=== PATIENT | male | born 1995 | race Caucasian/White ===

== ENCOUNTER 2023-05-05 10:55 | Emergency (ER) | payer OTHER, SELFPAY ==
--- NOTE | 2023-05-05 11:05 | ED.URI ---
HPI - URI/Sore Throat General Chief Complaint: Upper Respiratory Infection Stated Complaint: SORE THROAT Time Seen by Provider: 05/05/23 11:06 Source: patient Mode of arrival: ambulatory Limitations: no limitations History of Present Illness HPI Narrative: Patient is a 27-year-old male who presents with sore throat for 3 days. Patient does report mild congestion in the mornings but it resolves as the day goes on. Patient denies any history of seasonal allergies. Patient has not taken any medications for symptoms. Denies any fever, chills, cough, ear pain, nausea, vomiting, diarrhea. Related Data Allergies Allergy/AdvReac Type Severity Reaction Status Date / Time cephalexin [From Keflex] Allergy Hives Verified 05/05/23 11:03 Penicillins Allergy Hives Verified 05/05/23 11:03 Review of Systems Review of Systems: All systems reviewed & are unremarkable except as noted in HPI and below Constitutional: Constitutional: Denies body ache(s), Denies chills, Denies fatigue, Denies fever(s), Denies headache(s), Denies malaise and Denies weakness Eyes: Eyes: Denies blurry vision, Denies itchy eyes and Denies loss of vision ENT: Denies otalgia, Denies headache(s), Reports nasal congestion, Denies sinus pain and Reports sore throat Cardiovascular: Cardiovascular: Denies chest pain, Denies irregular heart rhythm and Denies dyspnea Respiratory: Respiratory: Denies cough and Denies dyspnea Gastrointestinal: Gastrointestinal: Denies abdominal pain, Denies diarrhea, Denies nausea and Denies vomiting Musculoskeletal: Musculoskeletal: Denies back pain, Denies myalgias and Denies arthralgias Integumentary/Breasts: Skin/Breast: Denies pruritus and Denies rash Neurologic: Denies headache(s), Denies loss of vision and Denies weakness Psychiatric: Psychiatric: Reports no additional psychiatric complaints Endocrine: Endocrine: Denies fatigue Allergic/Immunologic: Allergic/Immunologic: Denies itchy eyes PMFSH Comments At time of signature, agree with nursing past medical, surgical, social and family history. There is no relevant family history pertinent to the presenting complaint. Exam Const: General: cooperative, healthy appearing, comfortable, no acute distress and well nourished Nutritional Appearance: well nourished Orientation/consciousness: patient oriented x3 Limitations: no limitations HENMT: Head: normal to inspection, normocephalic and atraumatic Ears: hearing grossly normal bilaterally, external ears normal, TM normal on the left, EAC's normal, no periauricular adenopathy and TM abnormal erythematous on the right Face/Nose/Sinus: Normal external nose present, Normal nasal mucous membranes and turbinates present, normal facial exam, sinuses nontender and face symmetric Face and sinus: normal facial exam, sinuses nontender and face symmetric Mouth: Yes Normal oral and palatal mucosa present, Yes lip normal, Yes tongue normal, Yes Normal salivary glands and ducts present, Yes oropharynx normal and Yes moist mucous membranes Teeth and gingiva: dentition normal Throat: tonsils normal, uvula midline, posterior oropharynx abnormal erythema and postnasal drainage Eyes: General: appearance normal, both eyes and all related structures Alignment and Position: alignment normal and position normal Periorbital: periorbital findings normal Eyelids: eyelids normal Pupils: Equal, round and reactive pupils present Neck: Neck: normal visual inspection, full ROM, no lymphadenopathy and supple Chest: Chest palpation & inspection: normal inspection of the chest and normal palpation of entire chest wall Resp: Effort & Inspection: normal respiratory effort and able to speak in complete sentences Auscultation: clear to auscultation bilaterally, no crackles, no rales, no rhonchi and no wheezes Cardio: Rate: regular rate Rhythm: regular rhythm Heart sounds: S1 normal heart sound present and S2 normal heart sound present GI: Inspection: normal
== END 2023-05-05 11:43 | disposition home or self-care (01) ==
PROVIDERS: Emergency Provider Nurse Practitioner Family
DX: H66.001 Acute suppurative otitis media without spontaneous rupture of ear drum, right ear (principal)
CPT/HCPCS: 87081; 87880; 99213; G0463

== ENCOUNTER 2023-08-19 15:27 | Emergency (ER) | payer OTHER, SELFPAY ==
[2023-08-19 15:42] VITALS: BP 121/79; PULSE 89; RESP 16; TEMP 36.4; O2SAT 99
--- NOTE | 2023-08-19 16:20 | ED.SKABFB ---
HPI - Skin/Abscess/Foreign Bdy General Chief complaint: Skin/Abscess/Foreign Body Stated complaint: Rash Time Seen by Provider: 08/19/23 16:15 Source: patient, RN notes reviewed and old records reviewed Mode of arrival: ambulatory Limitations: no limitations History of Present Illness HPI narrative: 28 year old male who presents to [facility] care with complaints of of rash type of lesions on the left side of his mouth and on his chin for the past 1.5 weeks and it won't heal. Patient reports that he has noted some yellowish scaly drainage from area and is concerned for contagious rash. He states that he has been applying Neosporin ointment to rash without any improvement. Patient reports that he is concerned since he has a 1 month old baby at home. 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 MD complaint: rash Onset (ago): week(s) (1.5) Location: face Severity: mild Treatments prior to arrival: OTC topical medication Related Data Home Medications Medication Instructions Recorded Confirmed sertraline 100 mg tablet mg 08/19/23 Allergies Allergy/AdvReac Type Severity Reaction Status Date / Time cephalexin [From Keflex] Allergy Hives Verified 05/05/23 11:03 Penicillins Allergy Hives Verified 05/05/23 11:03 Review of Systems Review of Systems: CONSTITUTIONAL: Denies fever, chills, or sweats. CARDIOVASCULAR: Denies chest pain, palpitations, or edema. RESPIRATORY: Denies cough or dyspnea. SKIN: Reports rash type of lesions to the left side of his mouth and on his chin for 1.5 weeks duration. MUSCULOSKELETAL: Denies joint pain or myalgia. NEUROLOGIC: Denies headache, numbness, or weakness. All systems reviewed & are unremarkable except as noted in HPI and below PMFSH Past Medical History Medical History (Updated 08/21/23 @ 23:03 by Zeny Rushing NP) Anxiety Social History Social History (Updated 08/21/23 @ 23:03 by Zeny Rushing NP) Smoking status: Never smoker Alcohol intake: current Alcohol use details: socia Substance use type: does not use Living arrangements: with family Gender identity (if verbalized by the patient): Male Comments At time of signature, agree with nursing past medical, surgical, social and family history. There is no relevant family history pertinent to the presenting complaint Exam Narrative: GENERAL: Well-appearing, well-nourished, and in no acute distress. HEAD: Normocephalic, atraumatic. EYES: PERRLA, conjunctivae clear, and EOMI. ENT: Mucous membranes moist. Oropharynx without edema, erythema or lesions. NECK: Supple. No lymphadenopathy CHEST: Clear to auscultation. No respiratory distress.SAO2 99% on room air HEART: Regular rate and rhythm. SKIN: Warm, dry.? Patches of erythema with scaly appearing lesion to left corner of mouth and to left chin area, reports some yellow crusting NEURO:? Alert and oriented x3. PSYCH: Normal mood and affect Course Course Emergency Course: Patient is aware of diagnosis, understands and agrees to treatment plan.? Anticipatory guidance given.? Patient agrees to follow-up as directed and is aware of reasons to seek care at the emergency department. Portions of this record may have been created with voice recognition software Level of Care: Express Care Visit Vital Signs Vital signs: Vital Signs Temperature 36.4 C 08/19/23 15:42 Pulse Rate 89 08/19/23 15:42 Respiratory Rate 16 08/19/23 15:42 Blood Pressure 121/79 08/19/23 15:42 Pulse Oximetry 99 08/19/23 15:42 Temperature 36.4 C 08/19/23 15:42 Pulse Rate 89 08/19/23 15:42 Respiratory Rate 16 08/19/23 15:42 Blood Pressure 121/79 08/19/23 15:42 Pulse Oximetry 99 08/19/23 15:42 Reviewed MDM - Skin/Abscess/Foreign Bdy MDM Narrative Medical decision making narrative: Does not appear at this time to be erythema multiforme, bullous, SJS,
== END 2023-08-19 16:45 | disposition home or self-care (01) ==
PROVIDERS: Emergency Provider Registered Nurse
DX: L01.00 Impetigo, unspecified (principal); F41.9 Anxiety disorder, unspecified
CPT/HCPCS: 99213; G0463

== ENCOUNTER 2025-08-07 15:22 | Emergency (ER) | payer OTHER, SELFPAY ==
[2025-08-07] VITALS (10 sets, daily range): BP systolic 109–122; BP diastolic 71–82; PULSE 81–100; RESP 14–20; TEMP 36.4–36.9; O2SAT 97–100
--- NOTE | ~2025-08-07 | XR_ITS ---
EXAMINATION: XR shoulder LT min 2V DATE: 08/07/2025 18:04 INDICATION: Post reduction, left shoulder dislocation. TECHNIQUE: 3 views were obtained. COMPARISON: Normal alignment at the glenohumeral joint. No significant impact deformity of the head of the humerus is seen. Soft tissues are unremarkable. FINDINGS: Normal alignment at the left shoulder after relocation. IMPRESSION: 1. Reviewed, dictated and finalized at location T. T CLERK IMPRESSION: 1.
--- NOTE | ~2025-08-07 | XR_ITS ---
EXAMINATION: XR shoulder LT min 2V DATE: 08/07/2025 15:33 INDICATION: Possible dislocation. TECHNIQUE: 3 views were obtained. COMPARISON: None. FINDINGS: Anterior dislocation of the left shoulder is noted. No acute fracture. IMPRESSION: 1. Anterior dislocation at the left shoulder joint. Reviewed, dictated and finalized at location T. 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
--- NOTE | 2025-08-07 16:14 | ED.GENADULT ---
HPI - General Adult General Chief complaint: Extremity Injury, Upper Stated complaint: dislocated shoulder Time Seen by Provider: 08/07/25 15:42 History of Present Illness HPI narrative: 30-year-old male with prior history of left shoulder dislocation. Patient states that when he was younger he dislocated the shoulder multiple times but did have surgery at 18 years of age and is not dislocated the shoulder since. Patient was walking inside a dumpster and tripped and stabilized himself using his left arm and dislocated the left shoulder. Patient denies any other pain or injury other than the left shoulder. Shoulder x-ray does show an anterior shoulder dislocation. Related Data Home Medications ?Medication ?Instructions ?Recorded ?Confirmed ?Last Taken ?Type sertraline 100 mg tablet mg 08/19/23 Unknown History Allergies Allergy/AdvReac Type Severity Reaction Status Date / Time cephalexin (From Keflex) Allergy Hives Verified 05/05/23 11:03 Penicillins Allergy Hives Verified 05/05/23 11:03 [facility] Past Medical History Medical History (Updated 08/07/25 @ 18:36 by Dominic Palmer MD) Anxiety Social History Social History (Updated 08/21/23 @ 23:03 by Zeny Rushing APRN) Smoking status: Never smoker Alcohol intake: current Alcohol use details: socia Substance use type: does not use Living arrangements: with family Gender identity (if verbalized by the patient): Male Course Vital Signs Vital signs: Vital Signs Temperature 98.4 F 08/07/25 15:46 Pulse Rate 85 08/07/25 15:46 Respiratory Rate 20 08/07/25 15:46 Blood Pressure 109/71 08/07/25 15:46 Pulse Oximetry 99 08/07/25 15:46 Oxygen Delivery Room Air 08/07/25 15:46 Temperature 97.9 F 08/07/25 19:05 Pulse Rate 83 08/07/25 19:25 Respiratory Rate 20 08/07/25 19:25 Blood Pressure 122/80 08/07/25 19:25 Pulse Oximetry 100 08/07/25 19:25 Oxygen Delivery Room Air 08/07/25 19:05 Oxygen Flow Rate 2 08/07/25 18:05 Procedures Orthopedic Joint Reduction Joint #1: Orthopedic Joint Reduction Time: 17:56 Time Out Performed: Yes Side: left Joint Reduction Location: shoulder Analgesia: procedural sedation Pre-Procedure Neuro Vascular Exam: normal Shoulder Technique Used (if applicable): traction/counter-traction Post-reduction neuro exam: intact Post-reduction vascular: intact Post Reduction X-Ray Obtained: Yes Post Reduction X-Ray Results: reduced Splint Applied: Yes (Shoulder immobilizer) Patient Tolerated Procedure: well and no complications Procedural Sedation Procedural Sedation #1: Procedural Sedation Time: 17:56 Presedation Evaluation: APPEARANCE: Well appearing, no pain, no distress, well-nourished. HEAD: normocephalic, atraumatic. EYES: PERRLA/EOMI, conjunctivae clear. NOSE: Normal no drainage EARS:TMS clear with good light reflex. THROAT: Pharynx clear, no exudate. NECK: Supple. No adenopathy, no masses. RESPIRATORY: Airway patent, respirations nonlabored. Clear to auscultation bilaterally, no rales, rhonchi, wheezing. CARDIOVASCULAR: Regular rate and rhythm without murmurs rubs or gallops. ABDOMINAL: Soft, nontender, nondistended, normal bowel sounds MUSCULOSKELETAL: Moves all extremities. Strength/ROM intact, No edema, No calf tenderness. NEURO: Alert. Cranial nerves II through XII intact. Good gait. Good coordination SKIN: Warm, dry. Normal Color PSYCHIATRIC: Normal affect/mood. Medical Decision Making MDM Narrative Medical decision making narrative: 30-year-old male presents to the emergency department for evaluation left shoulder dislocation. Patient's initial x-ray does show an anterior left shoulder dislocation. Patient was moderately sedated using propofol and patient did have successful reduction of the left shoulder. This was confirmed by x-ray. On re-evaluation patient is well-appearing. Patient is alert and orientated back to his baseline. Differential Diagnosis Differential Diagnosis: Shoulder dislocation, shoulder fracture Vital Signs Vital Signs: Vital Signs Temperature 98.4 F 08/07/25 15:46 Pulse Rate 85 08/07/25 15:46 Respiratory Rate 20 08/07/25 15:46 Blood Pressure 109/71 08/07/25 15:46 Pulse Oximetry 99 08/07/25 15:46 Oxygen Delivery Room Air 08/07/25 15:46 Temperature 97.9 F 08/07/25 19:05 Pulse Rate 83 08/07/25 19:25 Respiratory Rate 20 08/07/25 19:25 Blood Pressure 122/80 08/07/25 19:25 Pulse Oximetry 100 08/07/25 19:25 Oxygen Delivery Room Air 08/07/25 19:05 Oxygen Flow Rate 2 08/07/25 18:05 Lab Data Lab results reviewed: Yes I reviewed the patient's lab results. Imaging Data My impression: Shoulder x-ray: Anterior shoulder dislocation Shoulder x-ray repeat: Reduced dislocation Radiologist's impression: Impressions Shoulder X-Ray 08/07/25 15:34 IMPRESSION: 1. Anterior dislocation at the left shoulder joint. Shoulder X-Ray 08/07/25 18:07 IMPRESSION: 1. Discharge Plan Discharge Clinical Impression: Anterior shoulder dislocation Patient Disposition: Home Condition: Stable Instructions: Antibiotic Form, Shoulder Dislocation (ED), Procedural Sedation (ED), Shoulder Immobilizer (ED) Additional Instructions: Have close follow-up with Orthopedics. Shoulder immobilizer until cleared by Orthopedics. Tylenol and ibuprofen for pain control. Flexeril for muscle spasm. If you have any worsening symptoms please call or return to the emergency department. Patient Language: Greek Prescriptions: New cyclobenzaprine 10 mg tablet 10 mg PO BID PRN (Reason: muscle spasm) Qty: 14 0RF No Action sertraline 100 mg tablet doxycycline hyclate 100 mg tablet 100 mg PO BID Qty: 14 0RF mupirocin 2 % ointment 1 applic topical BID Qty: 22 0RF Follow-up/Referrals: Trav Sena MD [Physician, Orthopedics] PHYSICIAN,OFFICE COMMUNICATION PROFESSOR [Primary Care Provider, Internal Medicine]
[2025-08-07] MEDS: HYDROmorphone HCL INJ (*CRX) 1 MG/ML SYR IV PUSH (16:37)
[2025-08-07] MEDS: HYDROmorphone HCL INJ (*CRX) 1 MG/ML SYR 0.5 MG IV PUSH (17:31)
--- OUTSIDE RECORDS SUMMARY | 2025-08-07 18:07 | XMS_ITS | Clinical Summary ---
Author Organization [facility] [address] Address [address] [place] [address] Care Team Providers Care City Solicitor Name Role Phone Unknown, Notinfile Primary Care Provider Unavail able Allergies Active Allergy Reactions Criticality Noted Date Comments Cephalexin Other (See comments),Rash Medium 12/18/2014 Penicillins Other (See comments),Rash Medium 5 Medications ergocalciferol (VITAMIN D) 50,000 unit capsule Take 1 capsule (50,000 Units total) by mouth once a week 08/18/2020 Active sertraline (ZOLOFT) 100 mg tablet Take 1 tablet (100 mg total) by mouth daily 07/12/2023 Active erythromycin (ILOTYCIN) ophthalmic ointmentIndicati ons:Blepharitis of right upper eyelid, unspecified type Apply to right eye 4 (four) times a day 3.5 g 07/09/[address] (PROTONIX) 40 mg EC tablet Take 1 tablet (40 mg total) by mouth daily 12/17/2024 Active benzonatate (TESSALON) 200 mg capsuleIndicatio ns:Lower respiratory tract infection Take 1 capsule (200 mg total) by mouth 3 (three) times a day as needed for cough 30 capsule 03/15/2025 Active Active Problems Problem Noted Date Diagnosed Date Elevated liver enzymes 07/09/2024 Erythrocytosis 07/09/2024 HLD (hyperlipidemia) 07/09/2024 Vitamin D deficiency 07/09/2024 RAJWINDER (generalized anxiety disorder) 08/18/2020 Migraine 08/18/2020 Social History Tobacco Use Types Packs/Day Years Used Date Smoking Tobacco: Never Assessed Sex and Gender Information Value Date Recorded Sex Assigned at Not on file Legal Sex Male 4:49 PM CDT Gender Identity Not on file Sexual Orientation Not on file Last Filed Vital Signs Vital Sign Reading Time Taken Comments Blood Pressure 98/60 03/15/2025 9:21 AM CDT Pulse 63 03/15/2025 9:21 AM CDT Temperature 36.3 C (97.4 F) 03/15/2025 9:21 AM CDT Respiratory Rate 22 03/15/2025 9:21 AM CDT Oxygen Saturation 98% 03/15/2025 9:21 AM CDT Inhaled Oxygen Concentration - - Weight 69.9 kg (154 lb) 03/15/2025 9:21 AM CDT Height 167.6 cm (5' 6) 03/15/2025 9:21 AM CDT Body Mass Index 24.86 03/15/2025 9:21 AM CDT Plan of Treatment Health Maintenance Due Date Last Done Comments Depression Screening 1995 Hepatitis C Screening 1995 Varicella Vaccines (1 of 2 - 13+ 2-dose series) 2008 Hepatitis B Screening 2013 Regular Well Visit/Exam 18-64 2013 HPV Vaccines (1 - 3-dose SCD M series) 2022 Covid-19 Vaccine (3 - 2024-2 6 season) 2025 06/09/2021, 05/12/2021 Influenza Vaccine (#1) 2025 DTaP/Tdap/Td Vaccine (2 - Td or Tdap) 03/20/2029 03/20/2019 Pneumococcal vaccine <65 Aged Out No longer eligible based on patient's age to complete this topic Insurance [facility] [id number] / [employer] HMO/PPO Address: [id number] [facility] [address] [place] [address] Care Teams City Solicitor Relationship Specialty Start Date End Date Unknown, Notinfile PCP - General 07/09/24
--- OUTSIDE RECORDS SUMMARY | 2025-08-07 18:07 | XMS_ITS | Clinical Summary ---
Author Organization [facility] Address [address] [place] [address] Care Team Providers Care Jig Boring Machine Set Up Operator Name Role Phone None, Physician Primary Care Provider Unavailabl e Source Comments [facility],non-owned Affiliates and Associated Physician Practices is amultiple site organization consisting of ambulatory clinics and hospital sitesin [place], [place], [place] and [place]. This disclosure is being madepursuant to the Care Everywhere program and may not contain all information available regarding this patient. Last updated 18.[facility] [email or web address] Allergies Active Allergy Reactions Criticality Noted Date Comments Cephalexin Skin Reactions Medium 12/18/2014 Penicillins Skin Reactions Medium 12/18/2014 Encounters Date Type Department Care Team Description 07/28/2025 Travel from Last 3 Months Family History Medical History Relation Name Comments Amblyopia Neg Hx Blindness Neg Hx Cataract Neg Hx Glaucoma Neg Hx Macular Degeneration Neg Hx Retinal Detachment Neg Hx Strabismus Neg Hx Thyroid Disease Neg Hx Social History Tobacco Use Types Packs/Day Years Used Date Smoking Tobacco: Never Sex and Gender Information Value Date Recorded Sex Assigned at Not on file 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 Gender Identity Not on file Sexual Orientation Not on file Plan of Treatment Upcoming Encounters Date Type Department Care Team (Late st Contact Info) Description 11/27/2025 1:40 PM CDT Office Visit [facility] - Dermatology [address] [place] [id number] Shu Allison MD [address] [facility] [place] [id number] Health Maintenance Due Date Last Done Comments HIV SCREENING 2010 HEPATITIS C SCREENING 07/27/2013 DTAP/TDAP/TD VACCINES (1 - Tdap) 2014 HEPATITIS B VACCINE (1 of 3 - 19+ 3-dose series) 2014 HPV VACCINE (1 - 3-dose SCDM series) 2022 DEPRESSION SCREENING 09/18/2024 COVID-19 VACCINE (1 - 2024-2 6 season) 2025 INFLUENZA VACCINE (#1) 2025 ZOSTER VACCINE (1 of 2) 2045 HIB VACCINE Aged Out No longer eligi ble based on patient's age to complete this topic MENINGOCOCCAL (Group B) VACC INE SHARED DECISION-MAKING Aged Out No longer eligibl e based on patient's age to complete this topic MENINGOCOCCAL GROUPS A/C/Y/W VACCINE Aged Out No longer eligible b ased on patient's age to complete this topic PNEUMOCOCCAL VACCINE Aged Out No long er eligible based on patient's age to complete this topic Insurance Field Dailies Care Teams Jig Boring Machine Set Up Operator Relationship Specialty Start Date End Date None, Physician PCP - General 07/28/25
--- OUTSIDE RECORDS SUMMARY | 2025-08-07 18:07 | XMS_ITS | Clinical Summary ---
Author Organization [facility] Address [address], [address] [address] Phone Care Team Providers Care Slot Machine Department Floorperson Name Role Phone Kike Morrow APRN, DIE REPAIRER TRIMMER DIES Primary Care Pr ovider Allergies Active Allergy Reactions Criticality Noted Date Comments Cephalexin Other (see Comments),Rash Medium 12/18/2014 Penicillins Other (see Comments),Rash Medium 5 Medications Acetaminophen-Ca ffeine (EXCEDRIN TENSION HEADACHE PO) Take by mouth. Active sertraline (ZOLOFT) 100 MG TabletIndication s:RAJWINDER (generalized anxiety disorder) Take 1 Tablet by mouth daily. 90 Tablet 3 12/17/2024 Active pantoprazole (PROTONIX) 40 MG Tablet Delayed ResponseIndicati ons:Gastroesopha geal reflux disease without esophagitis Take 1 Tablet by mouth daily. Take 30 minutes prior to the largest meal of the day. 90 Tablet 3 12/17/2024 Active Active Problems Problem Noted Date Diagnosed Date Migraine 08/18/2020 RAJWINDER (generalized anxiety disorder) 08/18/2020 Vitamin D deficiency HLD (hyperlipidemia) Erythrocytosis Elevated liver enzymes Immunizations Immunization Administration Dates Next Due TDAP Vaccine 03/20/2019 Social History Tobacco Use Types Packs/Day Years Used Date Smoking Tobacco: Never Smokeless Tobacco: Never Tobacco Cessation:Counseling Given: Not Answered Alcohol Use Standard Drinks/Week Comments Not Currently 0 (1 standard drink = 0.6 oz pur e alcohol) PHQ-2 Answer Date Recorded Total Score - Questions 1-9 0 04/0 09/2024 Education Answer Date Recorded What is the highest level of school you have completed or the highest degree you have received? 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 Gender Identity Male 07/07/2023 5:32 AM CDT Sexual Orientation Straight 07/07/2023 5: 32 AM CDT Last Filed Vital Signs Vital Sign Reading Time Taken Comments Blood Pressure 122/78 12/17/2024 10:54 AM CDT Pulse 60 12/17/2024 10:54 AM CDT Temperature 36.6 C (97.8 F) 12/17/2024 10:54 AM CDT Respiratory Rate 16 12/17/2024 10:54 AM CDT Oxygen Saturation 97% 12/17/2024 10:54 AM CDT Inhaled Oxygen Concentration - - Weight 78.5 kg (173 lb) 12/17/2024 10:54 AM CDT Height 170.2 cm (5' 7) 12/17/2024 10:54 AM CDT Body Mass Index 27.1 12/17/2024 10:54 AM CDT Plan of Treatment Health Maintenance Due Date Last Done Comments Hepatitis B Immunization (1 of 3 - 19+ 3-dose series) 2014 Human Papillomavirus (HPV) Immunization (1 - 3-dose SCDM series) 2022 Influenza Immunization (#1) 2025 SARS-COV-2 Immunization ( - 2024- season) 2025 Td Immunization Every 10 Yea rs (Adults With 1 Tdap) 03/20/2029 03/20/2019 Respiratory Syncytial Virus (RSV) Immunization (Adult) (1 - 1-dose 75+ series) 2070 DTaP/Tdap/Td Immunization Discontinued 03/20/2019 Hepatitis C Virus (HCV) Screening Discontinued 020 Meningococcal Immunization (ACWY) Aged Out No longer eligible based on patient's age to complete this topic Pneumococcal Immunization Combined Aged Out No longer eligible based on patient's age to complete this topic Rotavirus Immunization Aged Out No lo nger eligible based on patient's age to complete this topic Insurance [facility] Care Teams Slot Machine Department Floorperson Relationship Specialty Start Date End Date Kike Morrow APRN, DIE REPAIRER TRIMMER DIES [address] [address] PCP - General Advanced Practice Nurse 08/18/20
--- NOTE | 2025-08-07 18:11 | PC.NURSE ---
60 mg propofol administer by Dr. Spencer MD at 1745 40 mg propofol administer by Dr. Spencer MD at 1746 50 mg propofol administer by Dr. Spencer MD at 1748 50 mg propofol administer by Dr. Spencer MD at 1750
--- OUTSIDE RECORDS SUMMARY | 2025-08-07 18:15 | XMS_ITS | Clinical Summary ---
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 Gender Identity Not on file Sexual Orientation Not on file Last Filed Vital Signs Vital Sign Reading Time Taken Comments Blood Pressure 118/72 08/05/2016 1:23 PM 5TH GRADE TEACHER Pulse 73 08/05/2016 1:23 PM 5TH GRADE TEACHER Temperature - - Respiratory Rate - - Oxygen Saturation - - Inhaled Oxygen Concentration - - Weight 61.5 kg (135 lb 8 oz) 08/05/2016 1:23 PM 5TH GRADE TEACHER Height 170.2 cm (5' 7) 08/05/2016 1:23 PM 5TH GRADE TEACHER Body Mass Index 21.22 08/05/2016 1:23 PM 5TH GRADE TEACHER Plan of Treatment Health Maintenance Due Date Last Done Comments Annual Physical 1998 Hepatitis C 2013 DTaP, Tdap and Td Vaccines ( 1 - Tdap) 2014 Hepatitis B Vaccines (1 of 3 - 19+ 3-dose series) 2014 HPV Vaccines (1 - 3-dose SCD M series) 2022 COVID-19 Vaccine ( - 2024-2 6 season) 2025 Influenza Adult (#1) 2025 Hepatitis A Vaccines Aged Out No long er eligible based on patient's age to complete this topic Meningococcal B Vaccine Aged Out No l onger eligible based on patient's age to complete this topic Meningococcal Vaccine Aged Out No fred popeye eligible based on patient's age to complete this topic Pneumococcal Vaccine: Pediat rics (0 to 5 Years) and At-Risk Patients (6 to 49 Years) Aged Out No longer eligible b ased on patient's age to complete this topic RSV Immunizations Under 20 Months Aged Out No longer eligible based on patient's age to complete this topic
--- OUTSIDE RECORDS SUMMARY | 2025-08-07 18:15 | XMS_ITS | Encounter Summary ---
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
== END 2025-08-07 19:26 | disposition home or self-care (01) ==
PROVIDERS: Emergency Provider Emergency Medicine
DX: S43.015A Anterior dislocation of left humerus, initial encounter (principal); F41.9 Anxiety disorder, unspecified; Z79.899 Other long term (current) drug therapy; W01.0XXA Fall on same level from slipping, tripping and stumbling without subsequent striking against object, initial encounter
CPT/HCPCS: 23650; 73030; 96374; 96375; 99285; J1171